=== PATIENT | female | born 2000 ===

== ENCOUNTER → 2018-09-24 | Outpatient (CLI) | payer OTHER ==
[~2018-09-24] MED LIST: ALBU8.5H IH
[2018-09-24 11:16] LABS: PLATELET COUNT, AUTOMATED 233 K/uL (150-450)
== END ==
LOC: LAB 10:36
PROVIDERS: ATTEND Emergency Medicine
DX: N92.6 Irregular menstruation, unspecified (principal); R68.84 Jaw pain; J45.990 Exercise induced bronchospasm; M25.50 Pain in unspecified joint
CPT/HCPCS: 36415; 82040; 82247; 82306; 82310; 82374; 82435; 82565; 82607; 82947; 84075; 84132; 84155; 84295; 84443; 84450; 84460; 84520; 85025; 86140; 86200; 86430